=== PATIENT | female | born 1990 | race Caucasian/White ===

== ENCOUNTER 2021-04-16 22:18 | Emergency (ER) | payer MEDICAID ==
[~2021-04-16] VITALS: Ht 167.6 cm; Wt 118.2 kg
[2021-04-16 22:24] VITALS: BP 169/102
[2021-04-17] MEDS ORDERED: LIDOcaine 1% W/epiNEPHrine 1:100,000 20ml vial SQ ONE (01:15)
[2021-04-17] MEDS ORDERED: sulfamethoxazole/trimethoprim DS (800/160mg) tablet PO ONE (01:20)
[2021-04-17] MEDS ORDERED: HYDROcodone/acetaminophen 10/325mg tab PO ONE (01:50)
[2021-04-17] MEDS ORDERED: SULF1TAB49 PO (01:51)
[2021-04-17] MEDS ORDERED: HYDR-3972 PO (01:51)
== END 2021-04-17 02:11 | disposition home or self-care (01) ==
LOC: ER 22:19
DX: L73.2 Hidradenitis suppurativa (principal); L02.412 Cutaneous abscess of left axilla; Z79.2 Long term (current) use of antibiotics; Z79.899 Other long term (current) drug therapy
CPT/HCPCS: 10061; 99283; 99284